=== PATIENT | male | born 1990 | race Caucasian/White ===

== ENCOUNTER 2017-09-16 00:45 | Emergency (ER) | payer SELFPAY ==
[~2017-09-16] VITALS: Ht 162.6 cm; Wt 97.2 kg
[2017-09-16 00:49] VITALS: BP 154/93
--- NOTE | 2017-09-16 00:52 | NUR ---
27/M CAME IN W C/O 10/10 CHEST PAIN, SQUEEZING TYPE OF PAIN, NONPROVOKED, WORSENING IN THE LAST HOUR. PER PT, CHEST PAIN HAS BEEN INTERMITTENT FOR THE LAST 3 MONTHS. ALL LUNG SOUNDS CBTA, 18 RR EVEN AND UNLABORED, PT REPORTS CHEST DISCOMFORT DURING INSPIRATION. DENIES SOB/COUGH, N/V AT THIS TIME. SKIN IS WARM AND DRY. DENIES OTHER PMH/RX/OTC
--- NOTE | 2017-09-16 00:52 | NUR ---
PT TAKEN TO BED 6
--- NOTE | 2017-09-16 01:03 | NUR ---
Dr. Baird evaluating patient at bedside.
[2017-09-16] MEDS ORDERED: ASPIRIN 81 MG TAB.CHEW PO ONE (01:10)
[2017-09-16] MEDS ORDERED: MORPHINE SULFATE 4 MG/ML SYR IVP ONE (01:10)
[2017-09-16] MEDS ORDERED: NITROGLYCERIN 2% 1 GM PKT TP ONE (01:10)
--- NOTE | 2017-09-16 01:23 | NUR ---
X-Ray at bedside.
[2017-09-16 01:24] LABS: BASOPHILS % (AUTO) 0.4 % (0.0-2.0); EOSINOPHILS # (AUTO) 0.2 K/uL (0-0.4); HEMATOCRIT 44.6 % (36-52); HEMOGLOBIN 14.9 g/dL (12.0-18.0); LYMPHOCYTES # (AUTO) 2.5 K/uL (2.0-11.5); LYMPHOCYTES % (AUTO) 25.6 % (20.5-51.1); MEAN CORPUSCULAR HEMOGLOBIN 31 pg (27-31); MEAN CORPUSCULAR HGB CONC 34 g/dL (33-37); MEAN CORPUSCULAR VOLUME 92.4 fL (80-94); MONOCYTES # (AUTO) 0.5 K/uL (0.8-1.0); MONOCYTES % (AUTO) 5.1 % (1.7-9.3); NEUTROPHILS # (AUTO) 6.5 K/uL (1.8-7.7); NEUTROPHILS % (AUTO) 66.9 % (42.2-75.2); PLATELET COUNT (AUTO) 255 K/uL (140-450); RED BLOOD CELL COUNT(AUTO) 4.82 MIL/uL (4.20-6.10); RED CELL DISTRIBUTION WIDTH 13.5 % (11.6-13.7); WHITE BLOOD COUNT (AUTO) 9.8 K/uL (4.8-10.8)
[2017-09-16 01:34] LABS: ANION GAP 12.7 (8-16); CARBON DIOXIDE 28.1 mmol/L (21-32); CREATININE 0.9 mg/dL (0.7-1.3); POTASSIUM 3.8 mmol/L (3.5-5.1)
[2017-09-16 01:38] LABS: CHOL/HDL RATIO 4.8 (1-4.5)
[2017-09-16 01:40] LABS: ALBUMIN 4.2 g/dL (3.4-5.0); TOTAL BILIRUBIN 0.3 mg/dL (0.0-1.0)
[2017-09-16 01:49] LABS: CREATINE KINASE MB 0.4 ng/mL (0-3.6)
[2017-09-16] MEDS ORDERED: ACETAMINOPHEN 325 MG TAB PO ONE (02:10)
--- NOTE | 2017-09-16 05:22 | NUR ---
Dr. Baird evaluating patient at bedside.
--- NOTE | 2017-09-16 05:53 | NUR ---
PT TAKEN TO CT
--- NOTE | 2017-09-16 07:11 | NUR ---
Patient discharged with v/s stable. Written and verbal after care instructions given and explained. Patient alert, oriented and verbalized understanding of instructions. Ambulatory with steady gait. All questions addressed prior to discharge. ID band removed. Patient advised to follow up with PMD. Rx of NAPROSYN given. Patient educated on indication of medication including possible reaction and side effects. Opportunity to ask questions provided and answered. Addendum: 09/16/17 at 0715 by ELLIOTT IV removed, catheter intact and site benign. Applied folded 4x4 gauze and tape to stop bleeding.
[2017-09-16 07:15] VITALS: BP 115/72
== END 2017-09-16 07:11 | disposition home or self-care (01) ==
LOC: MED 00:45
DX: F41.9 Anxiety disorder, unspecified (principal); R07.89 Other chest pain; R94.31 Abnormal electrocardiogram [ECG] [EKG]
CPT/HCPCS: 36415; 71045; 71250; 72125; 72128; 80053; 80061; 81002; 82550; 82553; 83880; 84484; 85025; 85379; 93005; 96374; 99285; J2270

== ENCOUNTER 2019-07-11 11:24 | Emergency (ER) | payer OTHER ==
[~2019-07-11] VITALS: Ht 154.9 cm; Wt 77.1 kg
--- NOTE | 2019-07-11 11:24 | NUR ---
PT [facility]IE[facility] BLS TO ER BED 09
[2019-07-11 11:30] VITALS: BP 134/75
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
--- NOTE | 2019-07-11 11:58 | NUR ---
xray at bedside.
--- NOTE | 2019-07-11 12:30 | NUR ---
dr proctor at bedside evaluating pt.
[2019-07-11] MEDS ORDERED: IBUPROFEN 600 MG TAB PO ONE (12:35)
--- NOTE | 2019-07-11 12:48 | NUR ---
xray at bedside.
[2019-07-11 13:32] VITALS: BP 126/76
== END 2019-07-11 13:33 | disposition home or self-care (01) ==
LOC: MED 11:24
DX: S16.1XXA Strain of muscle, fascia and tendon at neck level, initial encounter (principal); S46.812A Strain of other muscles, fascia and tendons at shoulder and upper arm level, left arm, initial encounter; V89.2XXA Person injured in unspecified motor-vehicle accident, traffic, initial encounter; Y93.89 Activity, other specified; Y92.89 Other specified places as the place of occurrence of the external cause; Y99.8 Other external cause status
CPT/HCPCS: 73000; 73030; 99284